=== PATIENT | female | born 1950 | race Caucasian/White ===

== ENCOUNTER 2018-10-09 16:39 | Emergency (ER) | payer MEDICARE ==
[~2018-10-09] VITALS: Ht 157.5 cm; Wt 56.7 kg
[2018-10-09] MEDS ORDERED: AUGMENTIN 875-1 EACH PO (17:42)
== END 2018-10-09 17:55 | disposition home or self-care (01) ==
LOC: ED 16:39
PROC: 0XQJXZZ Repair Right Hand, External Approach (ICD-10-PCS; principal; 2018-10-09)
PROC: 0XQGXZZ Repair Right Wrist Region, External Approach (ICD-10-PCS; 2018-10-09)
DX: S61.551A Open bite of right wrist, initial encounter (principal); S61.451A Open bite of right hand, initial encounter; Z90.49 Acquired absence of other specified parts of digestive tract; W54.0XXA Bitten by dog, initial encounter
CPT/HCPCS: 12002; 99283-25

== ENCOUNTER 2018-10-11 11:01 | Emergency (ER) | payer MEDICARE ==
[~2018-10-11] VITALS: Ht 157.5 cm; Wt 56.7 kg
[~2018-10-11 11:01] MED LIST: AUGMENTIN 875-1 EACH PO
--- OUTSIDE RECORDS SUMMARY | 2018-10-11 11:04 | XMS ---
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 Pam has no Care Guidelines for this patient. Ian VISIT COUNT (12 MO.) [address] [facility] [address] TOTAL 2 NOTE: Visits indicate total known visits. ED/C VISIT TRACKING (12 MO.) 10/11/2018 11:[address] [facility] [facility] [place] TYPE: Emergency COMPLAINT: - WOUND CHECK 10/09/2018 16:40 [facility] [place] TYPE: Emergency COMPLAINT: - DOG BITE,R HAND INPATIENT VISIT TRACKING (12 MO.) No inpatient visits to display in this time frame [id number]
== END 2018-10-11 12:09 | disposition home or self-care (01) ==
LOC: ED 11:01
DX: S61.451D Open bite of right hand, subsequent encounter (principal); L03.113 Cellulitis of right upper limb; W54.0XXD Bitten by dog, subsequent encounter
CPT/HCPCS: 73130; 85025; 96365; 99283-25; J0295

== ENCOUNTER 2018-10-12 10:59 | Emergency (ER) | payer MEDICARE ==
[~2018-10-12] VITALS: Ht 157.5 cm; Wt 56.7 kg
--- OUTSIDE RECORDS SUMMARY | 2018-10-12 11:02 | XMS ---
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 Pam has no Care Guidelines for this patient. Ian VISIT COUNT (12 MO.) 3 [facility] [address] TOTAL 3 NOTE: Visits indicate total known visits. ED/C VISIT TRACKING (12 MO.) 10/12/2018 11:00 [facility] [place] TYPE: Emergency COMPLAINT: - WOUND CHECK 10/11/2018 11:02 [facility] [place] TYPE: Emergency COMPLAINT: - WOUND CHECK 10/09/2018 16:40 [facility] [place] TYPE: Emergency COMPLAINT: - DOG BITE,R HAND INPATIENT VISIT TRACKING (12 MO.) No inpatient visits to display in this time frame [email or web address]
== END 2018-10-12 12:25 | disposition home or self-care (01) ==
LOC: ED 10:59
DX: S62.344D Nondisplaced fracture of base of fourth metacarpal bone, right hand, subsequent encounter for fracture with routine healing (principal); S61.254D Open bite of right ring finger without damage to nail, subsequent encounter; W54.0XXD Bitten by dog, subsequent encounter; Z90.49 Acquired absence of other specified parts of digestive tract
CPT/HCPCS: 96365; 99282-25; J0295